=== PATIENT | female | born 1995 | race Native Hawaiian/Other Pacific Islander ===

== ENCOUNTER 2020-01-12 15:32 | Emergency (ER) | payer OTHER ==
[~2020-01-12] VITALS: Ht 160 cm; Wt 82.6 kg
[2020-01-12 17:15] LABS: PLATELET COUNT 348 K/uL (152-353)
[2020-01-12 17:49] LABS: POTASSIUM 4.1 mmol/L (3.6-5.2); SODIUM 137 mmol/L (136-145)
[2020-01-12 20:37] VITALS: BP 138/90; TEMP 98.5
== END 2020-01-12 20:39 | disposition home or self-care (01) ==
LOC: ED 15:32
PROVIDERS: Family Medicine
DX: F41.8 Other specified anxiety disorders (principal); R06.4 Hyperventilation
CPT/HCPCS: 80053; 81000; 84484; 85027; 93005; 99283

== ENCOUNTER 2020-05-03 12:23 | Observation (INO) | payer BC, OTHER ==
[~2020-05-03] VITALS: Ht 160 cm; Wt 95.9 kg
[2020-05-03 14:28] VITALS: BP 150/99; TEMP 98.2; Ht 160 cm; Wt 95.9 kg
[2020-05-03 15:57] LABS: PLATELET COUNT 270 K/uL (152-353)
[2020-05-03 16:55] LABS: POTASSIUM 3.8 mmol/L (3.6-5.2)
[2020-05-03 20:00] VITALS: BP 125/82; TEMP 98.3
[2020-05-03 23:59] VITALS: BP 118/68; TEMP 97.8
[2020-05-04] VITALS (9 sets, daily range): BP systolic 112–136; BP diastolic 65–87; TEMP 97.6–98.3
[2020-05-04 08:34] LABS: PLATELET COUNT 271 K/uL (152-353)
[2020-05-04 08:56] LABS: POTASSIUM 4.1 mmol/L (3.6-5.2); SODIUM 138 mmol/L (136-145)
[2020-05-05] VITALS: BP 117/83; TEMP 98.4
[2020-05-05 04:00] VITALS: BP 122/66; TEMP 97.9
[2020-05-05 05:56] LABS: PLATELET COUNT 241 K/uL (152-353)
[2020-05-05 06:24] LABS: POTASSIUM 4.1 mmol/L (3.6-5.2)
[2020-05-05 08:00] VITALS: BP 129/69; TEMP 97.8
== END 2020-05-05 12:45 | disposition home or self-care (01) ==
LOC: MED/SURG 12:23
PROVIDERS: ADMIT Family Medicine; ATTEND Family Medicine
PROC: 30233K1 Transfusion of Nonautologous Frozen Plasma into Peripheral Vein, Percutaneous Approach (ICD-10-PCS; principal; 2020-05-04)
DX: U07.1 COVID-19 (principal); E66.8 Other obesity; R09.02 Hypoxemia; R00.0 Tachycardia, unspecified; D64.89 Other specified anemias; R26.89 Other abnormalities of gait and mobility
CPT/HCPCS: 36415; 80053; 81000; 82550; 82728; 83735; 84100; 84484; 85027; 85379; 86140; 86900; 86901; 87040; 87502; 87635; 87651; 87899; 93005; 94667; 94668; 94760; 96365; 96366; 96367; 96372; 96375; 99220; G0378; G0379; J0456; J1100; J1650; J2060; J2405; J2550; P9017; U0003